=== PATIENT | female | born 1995 | race Caucasian/White ===

== ENCOUNTER 2022-08-25 20:38 | Emergency (ER) | payer OTHER, SELFPAY ==
[2022-08-25 20:39] VITALS: BP 152/79; PULSE 109; RESP 15; TEMP 37.1; O2SAT 97; BMI 42.0
--- NOTE | 2022-08-25 20:50 | ED.VIS.LOWEX ---
HPI History of Present Illness Chief Complaint: Lower Extremity Injury Narrative Narrative: 26-year-old female presents with her mother because of right knee pain and swelling that she has had over the last 2 to 3 days. She denies any trauma to the area but does note she has arthritis in her left knee from playing soccer. She does walk and stand all day at work. She denies any fevers or chills but states she has pain when she fully extends her right knee, and when she bends it more than 45 degrees. She has pain right below her kneecap. She has noticed diffuse swelling throughout her right knee. She denies any chest pain or shortness of breath. She does state that at times her right knee will lock up, and she is unable to fully extend it. PFSH PFSH Allergy/AdvReac Type Severity Reaction Status Date / Time No Known Allergies Allergy Verified 08/25/22 20:42 Social History Smoking Status: Never smoker ROS ROS ED ROS Narrative Constitutional: No fever, no chills. HEENT: No sore throat. No neck pain. No loss of vision. No rhinorrhea. Cardiovascular: No chest pain. No palpitations. No pedal edema. Respiratory: No cough, no shortness of breath. Abdominal: No abdominal pain. No nausea. No vomiting. Genitourinary: No dysuria. No hematuria. Musculoskeletal: No myalgias. Swelling and right knee arthralgia. Neurologic: No headaches. No dizziness. No lightheadedness. Skin: No rash. No change in color. Psychiatric: No depression. No anxiety. EXAM Physical Exam Narrative Exam Narrative: Afebrile. Vital signs noted. HEENT: Normocephalic. Atraumatic. PERRL, EOMI. Neck soft and supple. No point tenderness or step off. Cardiovascular: Regular rate and rhythm. No murmurs, rubs, or gallops appreciated. Respiratory: No tachypnea. Lungs clear to auscultation bilaterally. Gastrointestinal: Abdomen soft, nontender, with normoactive bowel sounds. No rebound or guarding. Neurological: Awake. Alert. Nonfocal, nonlateralizing. Skin: No rash. Normal color. No pallor. Musculoskeletal: No pedal edema. Full range of motion extremities. Positive extension and flexion mechanisms of right knee. Able to lift leg off bed without difficulty. Neurovascular intact distally with palpable dorsalis pedis pulse. No noted erythema. No appreciable effusion or tenderness along meniscal lines. Const Vital Signs: 08/25/22 20:39 Temperature 98.7 F Temperature Source Temporal Pulse Rate 109 H Respiratory Rate 15 Blood Pressure 152/79 H Blood Pressure Mean 103 Pulse Ox 97 Oxygen Delivery Method Room Air MDM MDM MDM Narrative Medical decision making narrative: Suspicion is higher for internal derangement of right knee. She has negative drawer signs. X-rays were obtained of the right knee and 4 views. My interpretation of her knee x-ray shows mild right lateral patellar subluxation with very small suprapatellar joint effusion. At this point in time she will be given an Leon wrap. She will ice and elevate and take NSAIDs as needed and follow-up with orthopedics regarding her knee pain and effusion. IFIGENESIS can be discharged safely home with follow-up. Return instructions were reviewed. Disposition is discharged home in stable condition. Radiography Diagnostic Testing: Clinical Impression(s) from Imaging Studies Knee X-Ray 08/25/22 21:00 IMPRESSION: Mild right lateral patellar subluxation with small suprapatellar joint effusion. Electronically Signed: Rao Silva MD at 21:30 EST , Discharge Plan Triage Chief Complaint: Lower Extremity Injury ED Provider: Jacob Sorto Dx/Rx/DC Orders Clinical Impression: Lateral subluxation of right patella, Suprapatellar effusion of knee Instructions: ED Knee Effusion, ED Patellar Dislocation/Subluxation Primary Care Provider: Morro Coats Referrals: Morro Coats MD [Primary Care Provider] - Jules Bravo MD [Med Staff - Active Staff] - As soon as possible Disposition Disposition: Home, Self Care
--- NOTE | 2022-08-25 21:00 | RAD_ITS ---
INDICATION: Complains of right knee pain that started Wednesday, denies any injury. EXAMINATION/TECHNIQUE: X-RAY - RIGHT XR Knee Complete 4 Views or More: AP, lateral, patellar sunrise and PA tunnel views. COMPARISON: None. FINDINGS: SOFT TISSUES: Small suprapatellar joint effusion. No significant soft tissue swelling. No radiopaque foreign body detected. BONES/JOINTS: Mild lateral patellar subluxation. No fracture demonstrated. Adequate femorotibial alignment. Preservation of the joint space(s). No suspicious osseous lesion observed. RAD/Knee 4 or More Views IMPRESSION: Mild right lateral patellar subluxation with small suprapatellar joint effusion. Electronically Signed: Rao Silva MD at 21:30 EST ,
== END 2022-08-25 22:14 | disposition home or self-care (01) ==
PROVIDERS: Emergency Provider Emergency Medicine; PCP Family Medicine; Visit Provider Emergency Medicine
DX: S83.011A Lateral subluxation of right patella, initial encounter (principal); M25.461 Effusion, right knee; M17.12 Unilateral primary osteoarthritis, left knee; M79.89 Other specified soft tissue disorders; X58.XXXA Exposure to other specified factors, initial encounter
CPT/HCPCS: 73564; 99282

== ENCOUNTER → 2022-11-09 | Outpatient (CLI) | payer OTHER, SELFPAY ==
--- NOTE | 2022-11-09 17:10 | MRI_ITS ---
EXAM: MR RIGHT LOWER EXTREMITY WITHOUT INTRAVENOUS CONTRAST, KNEE CLINICAL INDICATION: pain TECHNIQUE: Multiplanar and multisequence MR images of the right knee without intravenous contrast. This report was created using [employer] report generation technology. COMPARISON: None. FINDINGS: BONES/JOINTS: Unremarkable. No fracture. No abnormal bone marrow signal. No synovial hypertrophy. No intra-articular body. EXTENSOR MECHANISM: Unremarkable. MEDIAL MENISCUS: Unremarkable. LATERAL MENISCUS: Unremarkable. MEDIAL CAPSULE/SUPPORTING STRUCTURES: Unremarkable. Intact. ANTERIOR CRUCIATE LIGAMENT: Unremarkable. Intact. POSTERIOR CRUCIATE LIGAMENT: Unremarkable. Intact. MUSCLES: Unremarkable. CARTILAGE: Unremarkable. Intact. FLUID: Tiny Momin''s cyst. Small amount of suprapatellar joint fluid. OTHER SOFT TISSUES: See above. MRI/Lower Ext Joint Only (Routine) IMPRESSION: Tiny Momin''s cyst and small amount of suprapatellar joint fluid. Otherwise, no significant internal derangement. Electronically Signed: Tray Reyes MD at 0:15 EST ,
== END | disposition home or self-care (01) ==
LOC: MRI 16:38
PROVIDERS: PCP Family Medicine; Referring Provider Orthopaedic Surgery; Visit Provider Orthopaedic Surgery
DX: M25.561 Pain in right knee (principal); M22.8X1 Other disorders of patella, right knee
CPT/HCPCS: 73721

== ENCOUNTER 2022-11-30 16:00 | Outpatient (RCR) | payer OTHER, SELFPAY ==
--- NOTE | 2022-09-17 07:22 | HP.PTEVAL_ITS ---
Patient's Visit Information MERCEDES COHEN is a 26 year old F referred to Physical Therapy by Dr. Curtis Seo DO with a diagnosis of Subluxation of R patella. Date of Evaluation: 09/09/22 Physical Therapist: Eladio Morrison DPT - Visit Plan Frequency: 2x /Week Duration: 4 Weeks Plan: Start with restoring R knee ROM, progress to quad/VMO and glute med/core strengthening. Add in TFL stretching to allow for better patellar tracking. - Subjective Pt. is here today for her initial evaluation with diagnosis of lateral subluxation of right patella. Pt. reports having an injury ~3 weeks ago, no mech of injury but just felt some popping in her knee and increased pain. Pt. reports having issues with going up and down stairs with some popping, and with squatting. Pt. reports not much popping otherwise. Pt. was recently given a J brace and has had good response with this. Pt. reports some bruising, but not much. Pt. did have xrays- showing patellar subluxation. Physician did not think there was any ligament damage. Pt. is able to ambulate on her leg with good tolerance now that she has her brace. Pt. is hopeful to reduce symptoms in order to to complete all daily and work activities without limitations. - Pain R knee Pain Intensity (Out of 10): 1 Pain Intensity Range: 0, 7 - Objective POSTURE: Pt. has decent posture in stance. No knee valgus or varus noted. PALPATION: Pt. has tenderness along medial joint line, and along the medial boarder of the patella of L side. NEURO: Pt. has normal sensation throughout B LEs. Pt. has normal DTR of Bilateral LEs. ROM: L Knee: 0-3-105deg. R knee 0-0-125deg. Pt. had pain limiting full extension and flexion of LLE today. Pt. has tightness in her IT band as well, but not severe. Tight B HS noted as well. MMT: LLE: 5/5 throughout ankle and knee, hip: 4+/5 throughout. RLE: ankle 5/5, knee: ext 4/5 mild increase NW, flexion 4+/5 mild increase NW; hip: flexion 4+/5 NE, abd 4+/5 NE. Core strength- poor. GAIT: Pt. had wide TRACI in stance. She does have more amita valgum in stance with slight B femoral IR. Not severe though. STAIRS: step to pattern with use of B HR. Pt. reports L LE pain with loaded descending. - Special Tests L Knee Angus - Meniscus: Negative L Knee Apley - Meniscus: Negative L Knee Disco Test - Meniscus: Negative L Knee Anterior Drawer - ACL: Negative L Knee Valgus - MCL: Negative L Knee Varus - LCL: Negative L Knee Patellar Grind - PFS: Positive - Balance/Special Test Scores Lower Extremity Functional Score: 70 - Goals Goal 1:: LTG: Pt. to be I with HEP. Goal Time Frame: 4-6 Weeks Goal 2:: STG: Pt. to have full R knee ROM symmetrical to L side without increase in symptoms. Goal Time Frame: 2 Weeks Goal 3:: LTG: Pt. to have normal gait pattern without increase in R knee pain. Goal Time Frame: 2-4 Weeks Goal 4:: LTG: Pt. to negotiate steps with reciprocal pattern without increase in R knee pain. Goal Time Frame: 4-6 Weeks Goal 5:: LTG: Pt. to resume all work activities without increase in R knee pain. Goal Time Frame: 4-6 Weeks - Rehabilitation Potential Physical Therapy Diagnosis: Pt. has signs and symptoms consistent with a L patellar subluxation. Pt. has a slight loss of ROM of end range flexion and extension and shows some weakness of the same side. She would benefit from PT to increase her quad strength along with glute medius and stretch her IT band allowing for better patellar tracking. She is using a J brace currently to assist with stability. Rehabilitation Potential: Excellent - Anticipated Interventions Patient/Client Instruction: Educate patient on: Condition, Plan of Care, Risk Factors, Benefits of Fitness Program For the Purpose of:: To facilitate caregiver knowledge, To improve self m anagement, To prevent re-injury, To improve ability to perform tasks related to life management, To improve tolerance to ADL's Therapeutic Exercise to Include: Strength training, Power training, Postural training, Flexibilty training, Gait and locomotor training, Passive ROM, Active ROM For the Purpose of:: To decrease pain, To decrease swelling/inflammation, To increase ROM, To improve nutrient delivery to tissue, To increase oxygenation perfusion, To improve muscle performance and motor function, To improve ability to perform ADL's, To increase tolerance to activity/condition/position, To improve performance and independence with ADL's Thank you for the opportunity to evaluate your patient. For Medicare and Medicare HMO plans, please review the plan of care and approve it. It will need to be FAXED BACK to us at [phone] for Medicare purposes. For Medicare only, by signing this I certify the plan of care. Please let me know if there are questions or concerns regarding this plan of care. Physician Signature: Date:
--- NOTE | 2022-10-14 18:18 | HP.PTREVAL ---
Dr. Curtis Seo, DO, It has been my pleasure to treat MERCEDES COHEN over the last 9 visits for Subluxation of R patella. Please see the progress note below for an update on the physical therapy plan of care! Subjective: Pt. reports feeling a little bit stronger, but is still having pain as the day progresses as work. especially with stair and ladder negotation. She is doing well today, but has not been on her leg much today. Objective/Function: ROM: R knee 0-0-107deg, L knee 0-0-121deg. MMT: RLE: knee: ext 41.1#, flexion: 33.4#. LLE: Knee ext: 52.3#, flexion 39.1#. SQUAT: pt. has slight femoral IR and knee valgus with squat. Pt. corrected with VCing. gait: Pt. has fairly normal gait pattern, slight knee valgus and increased hyper extension during stance phase of BLEs. stairs: normal pattern with reciprocal pattern without increase in symptoms. Pt. is wearing her J brace as prescribed and tolerating well. She does have increased pain with increased work movement, especially stairs. Pt. reports doing well today, but she has not done much today. She does have some bruising, but appears to be from her brace. She reports pain worsens as the day progress. She reports increased popping with her movement and especially with stair negotiation. Overall she has improved with her strength, but is about 30% difference between R and L quad strength. She is still having the same level of pain with activities. Plan Plan: Pt. is going to be on hold. She id trying exercises on her own for a few weeks to see if she can do well on her onw. Pt. to have MRI at the end of the month. Balance/Gait/Functional tests - Balance/Special Test Scores Lower Extremity Functional Score: 70 Goals Goal 1:: LTG: Pt. to be I with HEP. Goal Time Frame: 4-6 Weeks Goal Progress: Goal Met Goal 2:: STG: Pt. to have full R knee ROM symmetrical to L side without increase in symptoms. Goal Time Frame: 2 Weeks Goal Progress: Progressing Goal 3:: LTG: Pt. to have normal gait pattern without increase in R knee pain. Goal Time Frame: 2-4 Weeks Goal Progress: Progressing Goal 4:: LTG: Pt. to negotiate steps with reciprocal pattern without increase in R knee pain. Goal Time Frame: 4-6 Weeks Goal Progress: Progressing Goal 5:: LTG: Pt. to resume all work activities without increase in R knee pain. Goal Time Frame: 4-6 Weeks Goal Progress: Not Progressing Anticipated Interventions Patient/Client Instruction: Educate patient on: Condition, Plan of Care, Risk Factors, Benefits of Fitness Program For the Purpose of:: To facilitate caregiver knowledge, To improve self management, To prevent re-injury, To improve ability to perform tasks related to life management, To improve tolerance to ADL's Therapeutic Exercise to Include: Strength training, Power training, Postural training, Flexibilty training, Gait and locomotor training, Passive ROM, Active ROM For the Purpose of:: To decrease pain, To decrease swelling/inflammation, To increase ROM, To improve nutrient delivery to tissue, To increase oxygenation perfusion, To improve muscle performance and motor function, To improve ability to perform ADL's, To increase tolerance to activity/condition/position, To improve performance and independence with ADL's Please do not hesitate to contact me at [phone] by phone or if you have questions or concerns regarding this new plan of care! Sincerely, Eladio Morrison DPT
--- NOTE | 2022-11-30 16:36 | HP.PTDCSUM ---
It has been my pleasure to treat MERCEDES COHEN referred by Dr. Curtis Seo DO, with the diagnosis of Subluxation of R patella for a total of 10 visit(s). Discharge Date: 11/30/22 Please see the following information for a summary of their discharge status. Subjective: Pt. reports overall doing much better. Pt. reports being 95% better overall. Not having much pain over the past few weeks. R knee Pain Intensity (Out of 10): 0 % Improvement: 95 Objective/Function: Pt. given HEP for her VMO, quad strengthening. She did much better. She will be DC from PT to those HEP this date. Pt. given handouts and band for exercises. Goal 1:: LTG: Pt. to be I with HEP. Goal Progress: Goal Met Goal 2:: STG: Pt. to have full R knee ROM symmetrical to L side without increase in symptoms. Goal Progress: Goal Met Goal 3:: LTG: Pt. to have normal gait pattern without increase in R knee pain. Goal Progress: Goal Met Goal 4:: LTG: Pt. to negotiate steps with reciprocal pattern without increase in R knee pain. Goal Progress: Goal Met Goal 5:: LTG: Pt. to resume all work activities without increase in R knee pain. Goal Progress: Goal Met Plan: Pt. to be DC to HEP at this point in time. Pt. is to do her HEP I, and call me if she has any issues. She is doing great. Discharge Comments: Pt. DC from PT at this point in time. Pt. is overall doing well. I gave her a new HEP this date to focus on glute and quad strengthening. Pt. is going to do her HEP and follow up in a month if needed. If there are questions or concerns regarding this patient's physical therapy, please feel free to call me at [phone]. Thank you for the referral of this patient. Sincerely, Eladio Rangel Sipos, DPT Balance/Gait/Functional tests - Balance/Special Test Scores Lower Extremity Functional Score: 70
== END 2022-11-30 19:00 | disposition home or self-care (01) ==
LOC: PT 16:00
PROVIDERS: PCP Family Medicine; Referring Provider Orthopaedic Surgery; Visit Provider Orthopaedic Surgery
DX: S83.011D Lateral subluxation of right patella, subsequent encounter (principal); M22.8X1 Other disorders of patella, right knee
CPT/HCPCS: 97110; 97161; 97164

== ENCOUNTER 2022-12-06 21:39 | Emergency (ER) | payer OTHER, SELFPAY ==
[2022-12-06 21:40] VITALS: BP 163/96; PULSE 109; RESP 16; TEMP 36.8; O2SAT 97; BMI 42.1
--- NOTE | 2022-12-06 22:33 | EDS_ITS ---
HPI HPI - URI History of Present Illness Chief Complaint: Cough Narrative Narrative: 27-year-old female, past medical history of exercise-induced asthma, presents with her mother because of cough that she has had for 2 days. She has chest pain in the middle of her chest when she coughs sometimes. She denies any nausea or vomiting, no shortness of breath or diaphoresis. It does not happen all the time. She has had upper respiratory infection type symptoms for the last 2 days. She has rhinorrhea alternating with nasal congestion. She has been taking Mucinex. She denies any sore throat, fever, or body aches. Her mother was concerned more to make sure that she does not have pneumonia. Patient denies any true shortness of breath, and occasional nonproductive cough. ROS ROS ED ROS Narrative Constitutional: No fever, no chills. HEENT: No sore throat. No neck pain. No loss of vision. Positive nasal congestion and rhinorrhea. Cardiovascular: Fleeting chest pain occasionally with cough. No palpitations. No pedal edema. Respiratory: Positive cough, no shortness of breath. Abdominal: No abdominal pain. No nausea. No vomiting. Genitourinary: No dysuria. No hematuria. Musculoskeletal: No myalgias. No arthralgias. Neurologic: No headaches. No dizziness. No lightheadedness. Skin: No rash. No change in color. Psychiatric: No depression. No anxiety. PFSH PFSH Home Medications multivitamin 1 tab PO DAILY 08/28/22 [History Last Taken Unknown] Allergy/AdvReac Type Severity Reaction Status Date / Time No Known Allergies Allergy Verified 12/06/22 22:37 Surgical History History of placement of ear tubes Hx of adenoidectomy Social History Smoking Status: Never smoker EXAM Physical Exam Narrative Exam Narrative: Afebrile. Vital signs noted. HEENT: Normocephalic. Atraumatic. PERRL, EOMI. Neck soft and supple. No point tenderness or step off. Cardiovascular: Regular rate and rhythm. No murmurs, rubs, or gallops appreciated. No chest wall tenderness or crepitance. Respiratory: No tachypnea. Lungs clear to auscultation bilaterally. Gastrointestinal: Abdomen soft, nontender, with normoactive bowel sounds. No rebound or guarding. Neurological: Awake. Alert. Nonfocal, nonlateralizing. Skin: No rash. Normal color. No pallor. Musculoskeletal: No pedal edema. Full range of motion extremities. Const Vital Signs: 12/06/22 21:40 12/06/22 22:38 Temperature 98.2 F Temperature Source Temporal Pulse Rate 109 H Respiratory Rate 16 Respiratory Effort Normal Non-Labored Respiratory Depth Normal Respiratory Pattern Normal Blood Pressure 163/96 H Blood Pressure Mean 118 Pulse Ox 97 Oxygen Delivery Method Room Air Room Air MDM MDM MDM Narrative Medical decision making narrative: I discussion with the patient and her mother. I do not think that this is cardiac chest pain as it is very brief and usually with a cough. I do not feel EKG is indicated. I offered to swab her for COVID and influenza, but they declined as treatment will be the same. Chest x-ray in 2 views was obtained and interpreted by myself to rule out pneumonia. On my interpretation, there is no acute cardiopulmonary process, no consolidation, no pneumothorax. I reviewed the radiology report. This confirms my interpretation. Her pulse ox is 97% on room air without evidence of hypoxia. I do feel that she probably has a viral URI and the treatment should continue to be symptomatic with Mucinex and [id number] medications. Radiography Diagnostic Testing: Clinical Impression(s) from Imaging Studies Chest X-Ray 12/06/22 22:40 IMPRESSION: Degenerative changes, as described above. No demonstrated acute cardiopulmonary process. Electronically Signed: Isadora Curtis MD at 22:53 EST Reading Location ID and State: [facility] / [place] Tel , Service support , Discharge Plan Triage Chief Complaint: Cough ED Provider: Jacob Sorto Dx/Rx/DC Orders Clinical Impression: URI (upper respiratory infection), Bronchitis Instructions: ED Bronchitis, No Antibiotic (Adult), ED URI, Viral, No Abx (Adult) Prescriptions: No Action multivitamin Tablet 1 tab PO DAILY Primary Care Provider: Morro Coats Referrals: Morro Coats MD [Primary Care Provider] - 1 Week if not improving Disposition Disposition: Home, Self Care
[2022-12-06 22:38] VITALS: O2SAT 98
--- NOTE | 2022-12-06 22:40 | RAD_ITS ---
STUDY: X-RAY CHEST REASON FOR EXAM: Female, 27 years old. Cough TECHNIQUE: PA and lateral views of the chest. COMPARISON: None. FINDINGS: The lungs are clear and expanded. There is no demonstrated pleural abnormality. Normal size heart. Normal mediastinum and curly. Normal visualized pulmonary arteries. Normal visualized aortic arch and descending thoracic aorta. There are diffuse degenerative changes of the visualized thoracic spine. Normal visualized ribs, clavicles, and shoulders. There is no demonstrated abnormality of the visualized soft tissue structures of the upper abdomen. RAD/Chest PA and Lateral IMPRESSION: Degenerative changes, as described above. No demonstrated acute cardiopulmonary process. Electronically Signed: Isadora Curtis MD at 22:53 EST Reading Location ID and State: [facility] / [place] Tel , Service support ,
[2022-12-06 23:10] VITALS: PULSE 102; RESP 18; O2SAT 98
== END 2022-12-06 23:11 | disposition home or self-care (01) ==
PROVIDERS: Emergency Provider Emergency Medicine; PCP Family Medicine; Visit Provider Emergency Medicine
DX: J06.9 Acute upper respiratory infection, unspecified (principal); J40 Bronchitis, not specified as acute or chronic
CPT/HCPCS: 71046; 99282